=== PATIENT | female | born 1950 ===

== ENCOUNTER 2017-09-16 19:05 | Emergency (ER) | payer MEDICARE ==
[~2017-09-16] VITALS: Ht 149.9 cm; Wt 73.0 kg
[2017-09-16] MEDS ORDERED: PANTOPRAZOLE 40 MG 10ML VIAL IV STA (19:18)
[2017-09-16] MEDS ORDERED: DIATRIZOATE MEGL/DIATRIZOA SOD 30 ML BTL PO ONE (19:28)
[2017-09-16] MEDS ORDERED: ONDANSETRON HCL 4 MG ORAL DISINTEGRATING TAB PO ONE (19:30)
[2017-09-16] MEDS ORDERED: SODIUM CHLORIDE 0.9% 1000ML 1,000 ML IV ONE (19:30)
[2017-09-16 19:34] LABS: EOSINOPHILS % 0.2 % (0.0-6.0); HEMATOCRIT 38.3 % (34.2-44.1); HEMOGLOBIN 12.9 g/dL (12.0-16.0); LYMPHOCYTES # (AUTO) 0.8 (1.0-3.2); LYMPHOCYTES % 8.2 % (18.0-39.1); MEAN CORPUSCULAR HEMOGLOBIN 29.5 pg (28-32); MEAN CORPUSCULAR HGB CONC 33.7 g/dL (31-35); MEAN CORPUSCULAR VOLUME 87.4 fL (81-99); MONOCYTES # (AUTO) 0.6 (0.2-0.8); MONOCYTES % 6.9 % (4.4-11.3); NEUTROPHILS # (AUTO) 7.7 (2.1-6.9); NEUTROPHILS % 84.5 % (38.7-80.0); PLATELET COUNT 136 x10e3/uL (140-360); RED BLOOD COUNT 4.38 x10e6/uL (3.6-5.1)
[2017-09-16 19:37] LABS: CLARITY,URINE CLEAR (CLEAR); COLOR,URINE YELLOW (YELLOW); KETONES,URINE NEGATIVE (NEGATIVE); LEUKOCYTE ESTERASE ,URINE NEGATIVE (NEGATIVE); NITRITE,URINE NEGATIVE (NEGATIVE); PROTEIN,URINE DIPSTICK NEGATIVE (NEGATIVE)
[2017-09-16 19:38] LABS: BILIRUBIN,URINE NEGATIVE (NEGATIVE); URINE UROBILINOGEN 0.2 mg/dL (0.2 - 1)
[2017-09-16 19:48] LABS: EPITHELIAL CELLS,URINE MODERATE /LPF; WBC,URINE (MAN) 0-5 /HPF (0-5)
[2017-09-16 19:49] LABS: BACTERIA,URINE RARE /HPF; MUCUS,URINE FEW (RARE)
[2017-09-16 19:54] LABS: ALANINE AMINOTRANSFERASE 21 IU/L (0-55); ALBUMIN 3.6 g/dL (3.5-5.0); ALKALINE PHOSPHATASE 112 IU/L (40-150); AMYLASE 63 U/L (25-125); ANION GAP 11.5 mmol/L (8-16); BLOOD UREA NITROGEN 10 mg/dL (7-26); BUN/CREATININE RATIO 14 (6-25); CALCIUM 9.1 mg/dL (8.4-10.2); CARBON DIOXIDE 27 mmol/L (22-29); CHLORIDE 104 mmol/L (98-107); CREATINE KINASE 58 IU/L (29-168); CREATININE, SERUM 0.71 mg/dL (0.57-1.11); EST GLOMERULAR FILTRATION RATE > 60 ML/MIN (60-); GLUCOSE 153 mg/dL (74-118); LIPASE 24 U/L (8-78); POTASSIUM 3.5 mmol/L (3.5-5.1); SODIUM 139 mmol/L (136-145)
--- NOTE | 2017-09-16 20:37 | Diagnostic Imaging Report ---
EXAMINATION: CT of the abdomen and pelvis with contrast. TECHNIQUE: Spiral CT images of the abdomen and pelvis were performed from the lung bases to the lesser trochanters after the intravenous administration of 150 cc of isovue 300 and the oral administration of enteric contrast. Coronal and sagittal reformatted images were obtained. COMPARISON: None. CLINICAL HISTORY:abdominal pain DISCUSSION: ABDOMEN/PELVIS: LOWER THORAX:Unremarkable. HEPATOBILIARY: No focal hepatic lesions. No intra-or extrahepatic biliary ductal dilation. Cholelithiasis. No thickening. SPLEEN: No splenomegaly. PANCREAS: No focal masses or ductal dilatation. ADRENALS: No adrenal nodules. KIDNEYS/URETERS: No hydronephrosis, stones, or solid mass lesions. PELVIC ORGANS/BLADDER: The bladder is normal. PERITONEUM/RETROPERITONEUM: No free air or fluid. LYMPH NODES: No intra-abdominal, retroperitoneal, pelvic or inguinal lymphadenopathy. VESSELS: The celiac trunk,superior and inferior mesenteric and bilateral renal arteries are patent The portal, superior mesenteric and splenic veins are patent. GI TRACT: No distention or wall thickening. Appendix is normal. BONES AND SOFT TISSUE: No bony destructive lesions. No soft tissue abnormalities. IMPRESSION: No acute CT finding. Cholelithiasis. Signed by: Dr. Moose Harry M.D. on 09/16/2017 8:33 PM
[2017-09-16] MEDS ORDERED: IOPAMIDOL 370 MG/ML 200 ML INFUS..BTL INJ ONE (22:56)
[2017-09-16] MEDS ORDERED: SODIUM CHLORIDE 0.9% 50ML 50 ML ONE (22:56)
== END 2017-09-16 21:45 | disposition home or self-care (01) ==
LOC: ER 19:05
DX: R10.10 Upper abdominal pain, unspecified (principal); R11.2 Nausea with vomiting, unspecified; R19.7 Diarrhea, unspecified; A08.11 Acute gastroenteropathy due to Norwalk agent; I10 Essential (primary) hypertension; F41.9 Anxiety disorder, unspecified; G40.909 Epilepsy, unspecified, not intractable, without status epilepticus
CPT/HCPCS: 36415; 74177; 80053; 81001; 82150; 82550; 82553; 83690; 84484; 85025; 99284; J7030; Q9967

== ENCOUNTER 2017-10-05 12:47 | Emergency (ER) | payer MEDICARE ==
[~2017-10-05] VITALS: Ht 149.9 cm; Wt 73.0 kg
--- OUTSIDE RECORDS SUMMARY | 2017-10-05 12:49 | XMS REPORT ---
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 Allergies, Adverse Reactions, Alerts This patient has no known allergies or adverse reactions. Medications This patient has no known medications. Results Test Description Test Time Test Comments Text Results Atomic Results Result Comments CT ABDOMEN/PELVIS W [address] [address] Patient Name: ANNETTE SUERO MR #: [id number] : 1950 Age/Sex: 67/F Req # : [id number] Adm Physician: Ordered by: OSMANI UROISTEGUI MD Report # : [id number] Location: ER Room/Bed: Procedure: [id number] CT/CT ABDOMEN/PELVIS W Exam Date: 09/16/17 Exam Time: 2012 REPORT STATUS: Signed EXAMINATION: CT of the abdomen and pelvis with contrast. TECHNIQUE: Spiral CT images of the abdomen and pelvis were performed from the lung bases to the lesser trochanters after the intravenous administration of 150 cc of isovue 300 and the oral administration of enteric contrast. Coronal and sagittal reformatted images were obtained. COMPARISON: None. CLINICAL HISTORY:abdominal pain DISCUSSION: ABDOMEN/PELVIS: LOWER THORAX:Unremarkable. HEPATOBILIARY: No focal hepatic lesions. No intra-or extrahepatic biliary ductal dilation. Cholelithiasis. No thickening. SPLEEN: No splenomegaly. PANCREAS: No focal masses or ductal dilatation. ADRENALS: No adrenal nodules. KIDNEYS/URETERS: No hydronephrosis, stones, or solid mass lesions. PELVIC ORGANS/BLADDER: The bladder is normal. PERITONEUM/ RETROPERITONEUM: No free air or fluid. LYMPH NODES: No intra-abdominal, retroperitoneal, pelvic or inguinal lymphadenopathy. VESSELS: The celiac trunk,superior and inferior mesenteric and bilateral renal arteries are patent The portal, superior mesenteric and splenic veins are patent. GI TRACT: No distention or wall thickening. Appendix is normal. BONES AND SOFT TISSUE: No bony destructive lesions. No soft tissue abnormalities. IMPRESSION: No acute CT finding. Cholelithiasis. Signed by : Dr. Sherman Honeycutt M.D. on 09/16/2017 8:33 PM Dictated By: SHERMAN HONEYCUTT MD 32 Transcribed By: AMADA on 09/16/172032 COPY TO: OSMANI URIOSTEGUI MD
--- OUTSIDE RECORDS SUMMARY | 2017-10-05 12:49 | XMS REPORT | Continuity of Care Document ---
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 No 09/16/17 7:04pm If yes, is advance directive on file with [facility]? No 09/16/17 7:04pm If not on file with [facility] will patient provide a copy? No 09/16/17 7:04pm Do you have a Directive to Physician? No 09/16/17 7:04pm Do you have a Medical Power of Machine Stuffer? No 09/16/17 7:04pm Do you have an out of hospital Do Not Resuscitate Order? No 09/16/17 7:04pm Do you have any special needs we should be aware of? No 09/16/17 7:04pm Do you have a support person here with you today? Yes 09/16/17 7:04pm Did patient receive Notice of Privacy Practices? Yes 09/16/17 7:04pm Did patient receive patient rights and responsibilities? Yes 09/16/17 7:04pm Problems No problem information available. Medications No medication information available. Social History No social history information available. Hospital Discharge Instructions No hospital discharge instruction information available. Plan of Care Discharge Date 09/16/17 9:45pm Disposition HOME, SELF-CARE Condition at Discharge Stable Instructions/Education Provided Abdominal Pain - Adult Forms Provided Work/School Excuse Prescriptions See Medication Section Referrals URI BARKSDALE MD Order Date: Call for an appointment Address: [address] [place] [address] [address] [place] [address] Additional Instructions/Education DC HOME FOLLOW UP WITH PCP TAKE MEDS DIRECTED RETURN TO THE ER WITH ANY EMERGENT CONDITIONS Functional Status No functional status information available. Allergies, Adverse Reactions, Alerts No known allergies. Immunizations No immunization information available. Vital Signs Acute Vital Signs Vital Response Date/Time Height 4 ft 11 in 09/16/2017 7:13pm Weight 161 lb 09/16/2017 7:13pm Body Mass Index 32.5 kg/m^2 09/16/2017 7:13pm Results Laboratory Results Test Name Result Units Flags Reference Collection Date/Time Result Date/ Time Comments White Blood Count 9.15 x10e3/uL 4.8-10.8 09/16/2017 7:20pm 09/16/2017 7 :34pm Red Blood Count 4.38 x10e6/uL 3.6-5.1 09/16/2017 7:20pm 09/16/2017 7: 34pm Hemoglobin 12.9 g/dL 12.0-16.0 09/16/2017 7:20pm 09/16/2017 7:34pm Hematocrit 38.3 % 34.2-44.1 09/16/2017 7:20pm 09/16/2017 7:34pm Mean Corpuscular Volume 87.4 fL 81-99 09/16/2017 7:20pm 09/16/2017 7: 34pm Mean Corpuscular Hemoglobin 29.5 pg 28-32 09/16/2017 7:20pm 09/16/2017 7:34pm Mean Corpuscular Hemoglobin Concent 33.7 g/dL 31-35 09/16/2017 7:20pm 09/16/2017 7:34pm Red Cell Distribution Width 14.0 % 11.7-14.4 09/16/2017 7:20pm 2017 7:34pm Platelet Count 136 x10e3/uL L 140-360 09/16/2017 7:20pm 09/16/2017 7: 34pm Neutrophils (%) (Auto) 84.5 % H 38.7-80.0 09/16/2017 7:20pm 09/16/2017 7 :34pm Lymphocytes (%) (Auto) 8.2 % L 18.0-39.1 09/16/2017 7:20pm 09/16/2017 7: 34pm Monocytes (%) (Auto) 6.9 % 4.4-11.3 09/16/2017 7:20pm 09/16/2017 7: 34pm Eosinophils (%) (Auto) 0.2 % 0.0-6.0 09/16/2017 7:20pm 09/16/2017 7: 34pm Basophils (%) (Auto) 0.0 % 0.0-1.0 09/16/2017 7:20pm 09/16/2017 7:34pm IM GRANULOCYTES % 0.2 % 0.0-1.0 09/16/2017 7:20pm 09/16/2017 7:34pm Neutrophils # (Auto) 7.7 H 2.1-6.9 09/16/2017 7:20pm 09/16/2017 7: 34pm Lymphocytes # (Auto) 0.8 L 1.0-3.2 09/16/2017 7:20pm 09/16/2017 7: 34pm Monocytes # (Auto) 0.6 0.2-0.8 09/16/2017 7:20pm 09/16/2017 7:34pm Eosinophils # (Auto) 0.0 0.0-0.4 09/16/2017 7:20pm 09/16/2017 7:34pm Basophils # (Auto) 0.0 0.0-0.1 09/16/2017 7:20pm 09/16/2017 7:34pm Absolute Immature Granulocyte (auto 0.02 x10e3/uL 0-0.1 09/16/2017 7: 20pm 09/16/2017 7:34pm Urine Color YELLOW YELLOW 09/16/2017 7:20pm 09/16/2017 7:38pm Urine Clarity CLEAR CLEAR 09/16/2017 7:20pm 09/16/2017 7:38pm Urine Specific [place] 1.020 1.010-1.025 09/16/2017 7:20pm 2017 7:38pm Urine pH 6 5 - 7 09/16/2017 7:20pm 09/16/2017 7:38pm Urine Leukocyte Esterase NEGATIVE NEGATIVE 09/16/2017 7:20pm 2017 7:38pm Urine Nitrite NEGATIVE NEGATIVE 09/16/2017 7:09/16/2017 7:38pm Urine Protein NEGATIVE NEGATIVE 09/16/2017 7:20pm 09/16/2017 7:38pm Urine Glucose (UA) NEGATIVE NEGATIVE 09/16/2017 7:pm 09/16/2017 7: 38pm Urine Ketones NEGATIVE NEGATIVE 09/16/2017 7:pm 09/16/2017 7:38pm Urine Urobilinogen 0.2 mg/dL 0.2 - 1 09/16/2017 7:09/16/2017 7: 38pm Urine Bilirubin NEGATIVE NEGATIVE 09/16/2017 7:09/16/2017 7: 38pm Urine Blood 2+ H NEGATIVE 09/16/2017 7:09/16/2017 7:38pm Urine WBC 0-5 /HPF 0-5 09/16/2017 7:pm 09/16/2017 7:49pm Urine RBC 6-10 /HPF H 0-5 09/16/2017 7:20pm 09/16/2017 7:49pm Urine Bacteria RARE /HPF NONE 09/16/2017 7:09/16/2017 7:49pm Urine Epithelial Cells MODERATE /LPF NONE 09/16/2017 7:09/16/2017 7:49pm Urine Mucus FEW H RARE 09/16/2017 7:09/16/2017 7:49pm Sodium Level 139 mmol/L 136-145 09/16/2017 7:pm 09/16/2017 7:57pm Potassium Level 3.5 mmol/L 3.5-5.1 09/16/2017 7:20pm 09/16/2017 7:57pm Chloride Level 104 mmol/L 98-107 09/16/2017 7:20pm 09/16/2017 7:57pm Carbon Dioxide Level 27 mmol/L 22-29 09/16/2017 7:2009/16/2017 7: 57pm Anion Gap 11.5 mmol/L 8-16 09/16/2017 7:20pm 09/16/2017 7:57pm Blood Urea Nitrogen 10 mg/dL 7-09/16/2017 7:2009/16/2017 7:57pm Creatinine 0.71 mg/dL 0.57-1.11 09/16/2017 7:2009/16/2017 7:57pm BUN/Creatinine Ratio 14 6-09/16/2017 7:09/16/2017 7:57pm Estimat Glomerular Filtration Rate > 60 ML/MIN 6009/16/2017 7:20 7:57pm Ranges were taken from the National Kidney Disease Education Program and the National Kidney Foundation literature. Reference ranges: 60 or greater: Normal 16-59 (for 3 consecutive months): Chronic kidney disease 15 or less: Kidney failure Glucose Level 153 mg/dL H 74-118 09/16/2017 7:2009/16/2017 7:57pm Calcium Level 9.1 mg/dL 8.4-10.2 09/16/2017 7:2009/16/2017 7:57pm Total Bilirubin 0.4 mg/dL 0.2-1.2 09/16/2017 7:20pm 09/16/2017 7:57pm Aspartate Amino Transf (AST/SGOT) 16 IU/L 5-34 09/16/2017 7:202017 7:57pm Alanine Aminotransferase (ALT/SGPT) 21 IU/L 0-55 09/16/2017 7:01/2018 7:57pm Total Protein 7.3 g/dL 6.5-8.1 09/16/2017 7:09/16/2017 7:57pm Albumin 3.6 g/dL 3.5-5.0 09/16/2017 7:20pm 09/16/2017 7:57pm Globulin 3.7 g/dL H 2.3-3.5 09/16/2017 7:20pm 09/16/2017 7:57pm Albumin/Globulin Ratio 1.0 0.8-2.0 09/16/2017 7:2009/16/2017 7: 57pm Alkaline Phosphatase 112 IU/L 40-150 09/16/2017 7:20pm 09/16/2017 7: 57pm Creatine Kinase 58 IU/L 29-168 09/16/2017 7:20pm 09/16/2017 7:57pm Creatine Kinase MB 0.70 ng/mL 0-5.0 09/16/2017 7:20pm 09/16/2017 8: 01pm Troponin I < 0.001 ng/mL 0-0.300 09/16/2017 7:20pm 09/16/2017 8:01pm Amylase Level 63 U/L 25-125 09/16/2017 7:20pm 09/16/2017 7:57pm Lipase 24 U/L 8-78 09/16/2017 7:20pm 09/16/2017 7:57pm Procedures Procedure Status Date Provider(s) Computed tomography of abdomen and pelvis with contrast Active 09/16/17 OSMANI URIOSTEGUI MD Encounters Encounter Location Arrival/Admit Date Discharge/Depart Date Attending Provider Departed Emergency Room [facility] 09/16/17 7:05pm 9:45pm OSMANI URIOSTEGUI MD
[2017-10-05] MEDS ORDERED: DEXTROSE 5%/0.45% SOD CHL 1,000 ML IV STA (14:07)
[2017-10-05] MEDS ORDERED: MORPHINE SULFATE 2 MG/ML SYR IV STA (14:07)
[2017-10-05] MEDS ORDERED: ONDANSETRON HCL 4 MG ORAL DISINTEGRATING TAB PO ONE (14:15)
[2017-10-05 15:15] LABS: BILIRUBIN,URINE NEGATIVE (NEGATIVE); CLARITY,URINE CLEAR (CLEAR); COLOR,URINE YELLOW (YELLOW); KETONES,URINE NEGATIVE (NEGATIVE); LEUKOCYTE ESTERASE ,URINE NEGATIVE (NEGATIVE); NITRITE,URINE NEGATIVE (NEGATIVE); PROTEIN,URINE DIPSTICK NEGATIVE (NEGATIVE); URINE UROBILINOGEN 0.2 mg/dL (0.2 - 1)
[2017-10-05 15:32] LABS: EPITHELIAL CELLS,URINE FEW /LPF; MUCUS,URINE RARE (RARE); RENAL EPITHELIAL CELLS,URINE FEW; WBC,URINE (MAN) 0-5 /HPF (0-5)
--- NOTE | 2017-10-05 16:23 | Diagnostic Imaging Report ---
EXAM: Right Upper Quadrant Ultrasound INDICATION: \S\ABD PAIN \S\Y COMPARISON: CT 09/16/2017 TECHNIQUE: Transverse and longitudinal images of the right upper abdomen were obtained. FINDINGS: Liver: Size: 14.9 cm in the right midclavicular line, normal Appearance: Normal echogenicity, smooth contour Mass: No focal masses Gallbladder: Stones/Sludge: Numerous shadowing stones with a wall echo shadow appearance. Wall: 0.2 cm Appearance: No pericholecystic fluid or hydrops. Sonographic Serrano's Sign: Negative Bile Ducts: Intrahepatic Ducts: No dilatation Extrahepatic Ducts: Common bile duct measures 0.2 cm, no dilatation Pancreas: Incompletely visualized due to overlying bowel gas, but no abnormality identified involving the visualized portions of the pancreas. Right Kidney: Size: 11.1 cm Echogenicity: Normal Parenchymal thickness: Normal Collecting system: No hydronephrosis Stones: None Cyst/Mass: None Vessels: Aorta: Visualized portions are normal Inferior Vena Cava: Visualized portions are normal Main Portal Vein: 1.3 cm, normal size with hepatopetal flow. Free Fluid: No ascites or pleural effusion IMPRESSION: Cholelithiasis without sonographic evidence of acute cholecystitis. Signed by: DR. Helder Carrizales MD on 10/05/2017 4:19 PM
[2017-10-05 17:30] LABS: BASOPHILS % 0.2 % (0.0-1.0); EOSINOPHILS # (AUTO) 0.1 (0.0-0.4); HEMATOCRIT 41.2 % (34.2-44.1); HEMOGLOBIN 13.8 g/dL (12.0-16.0); LYMPHOCYTES # (AUTO) 2.4 (1.0-3.2); LYMPHOCYTES % 29.4 % (18.0-39.1); MEAN CORPUSCULAR HEMOGLOBIN 29.8 pg (28-32); MEAN CORPUSCULAR HGB CONC 33.5 g/dL (31-35); MONOCYTES # (AUTO) 0.5 (0.2-0.8); NEUTROPHILS # (AUTO) 5.2 (2.1-6.9); PLATELET COUNT 186 x10e3/uL (140-360); RED BLOOD COUNT 4.63 x10e6/uL (3.6-5.1); RED CELL DISTRIBUTION WIDTH 13.9 % (11.7-14.4)
[2017-10-05 17:40] LABS: INR 1.06
[2017-10-05 17:42] LABS: PARTIAL THROMBOPLASTIN TIME 31.3 seconds (23.8-35.5)
[2017-10-05] MEDS ORDERED: DEXTROSE 5%/0.45% SOD CHL 1,000 ML IV ONE (17:42)
[2017-10-05] MEDS ORDERED: MORPHINE SULFATE 2 MG/ML SYR ONE (17:42)
[2017-10-05] MEDS ORDERED: ONDANSETRON HCL 4 MG ORAL DISINTEGRATING TAB ONE (17:42)
[2017-10-05 17:49] LABS: ALANINE AMINOTRANSFERASE 38 IU/L (0-55); ALBUMIN 4.3 g/dL (3.5-5.0); ALBUMIN/GLOBULIN RATIO 1.2 (0.8-2.0); ALKALINE PHOSPHATASE 145 IU/L (40-150); ANION GAP 14.6 mmol/L (8-16); BLOOD UREA NITROGEN 11 mg/dL (7-26); BUN/CREATININE RATIO 16 (6-25); CALCIUM 10.3 mg/dL (8.4-10.2); CARBON DIOXIDE 31 mmol/L (22-29); CHLORIDE 103 mmol/L (98-107); CREATINE KINASE 61 IU/L (29-168); EST GLOMERULAR FILTRATION RATE > 60 ML/MIN (60-); GLUCOSE 98 mg/dL (74-118); LIPASE 35 U/L (8-78); POTASSIUM 4.6 mmol/L (3.5-5.1); SODIUM 144 mmol/L (136-145)
[2017-10-05] MEDS ORDERED: SODIUM CHLORIDE 0.9% 50ML 50 ML ONE (18:30)
[2017-10-05] MEDS ORDERED: IOPAMIDOL 370 MG/ML 200 ML INFUS..BTL INJ ONE (18:31)
--- NOTE | 2017-10-05 18:48 | Diagnostic Imaging Report ---
EXAM: CT Abdomen and Pelvis WITH contrast INDICATION: \S\r/o cholecyctitis / sbo / divertic \[id number] \S\1815 COMPARISON: CT 09/16/2017, ultrasound 10/05/2017 TECHNIQUE: Abdomen and pelvis were scanned utilizing a multidetector helical scanner from the lung base to the pubic symphysis after administration of IV contrast. Coronal and sagittal reformations were obtained. Routine protocol was performed. Scan was performed when during portal venous phase. IV CONTRAST: 100 mL of Isovue-370 ORAL CONTRAST: Water COMPLICATIONS: None RADIATION DOSE: Total DLP: 426.7 mGy*cm Estimated effective dose: (DLP x 0.015 x size factor) mSv CTDIvol has been reviewed. It is below the limits set by the Radiation Protocol Committee (RPC). FINDINGS: LINES and TUBES: None. LOWER THORAX: Unremarkable. HEPATOBILIARY: Tiny low attenuating lesions are too small to characterize but likely benign. No intra-or extrahepatic biliary ductal dilation. Cholelithiasis. No thickening. SPLEEN: No splenomegaly. PANCREAS: No focal masses or ductal dilatation. ADRENALS: No adrenal nodules. KIDNEYS/URETERS: No hydronephrosis, stones, or solid mass lesions. Tiny low attenuating lesions are too small to characterize but likely benign. PELVIC ORGANS/BLADDER: The bladder is normal. Calcified fibroid. PERITONEUM/RETROPERITONEUM: No free air or fluid. LYMPH NODES: No intra-abdominal, retroperitoneal, pelvic or inguinal lymphadenopathy. VESSELS: The celiac trunk,superior and inferior mesenteric and bilateral renal arteries are patent The portal, superior mesenteric and splenic veins are patent. GI TRACT: No distention or wall thickening. Appendix is normal. BONES AND SOFT TISSUE: No bony destructive lesions. No soft tissue abnormalities. IMPRESSION: No acute CT finding. Cholelithiasis. Signed by: DR. Helder Carrizales MD on 10/05/2017 6:44 PM
== END 2017-10-05 18:45 | disposition home or self-care (01) ==
LOC: ER 12:47
DX: K80.70 Calculus of gallbladder and bile duct without cholecystitis without obstruction (principal); I10 Essential (primary) hypertension
CPT/HCPCS: 93005; 99284; J2270; Q9967

== ENCOUNTER 2020-12-27 15:57 | Emergency (ER) | payer MEDICARE ==
[~2020-12-27] VITALS: Ht 154.9 cm; Wt 64.0 kg
[2020-12-27] MEDS ORDERED: HYDROCODONE/APAP 5MG-325MG TAB PO ONE (16:30)
[2020-12-27] MEDS ORDERED: LOSARTAN POTAS100 MG PO (18:06)
[2020-12-27] MEDS ORDERED: TRAZODONE HCL100 MG PO (18:06)
[2020-12-27] MEDS ORDERED: DILANTIN100 MG PO (18:06)
[2020-12-27] MEDS ORDERED: BUSPIRONE HCL15 MG (18:06)
[2020-12-27] MEDS ORDERED: AMLODIPINE BESYL5 MG PO (18:06)
== END 2020-12-27 18:17 | disposition home or self-care (01) ==
LOC: FSED 16:10
DX: S42.411A Displaced simple supracondylar fracture without intercondylar fracture of right humerus, initial encounter for closed fracture (principal); I10 Essential (primary) hypertension; F41.9 Anxiety disorder, unspecified; F32.9 Major depressive disorder, single episode, unspecified; G40.909 Epilepsy, unspecified, not intractable, without status epilepticus; Z79.899 Other long term (current) drug therapy; W01.0XXA Fall on same level from slipping, tripping and stumbling without subsequent striking against object, initial encounter
CPT/HCPCS: 99284